=== PATIENT | female | born 1995 | race African-American/Black ===

== ENCOUNTER 2020-03-23 12:05 | Inpatient (IN) | payer MEDICAID, SELFPAY ==
--- NOTE | ~2020-03-23 | CT_ITS ---
EXAMINATION: CT abdomen pelvis w con DATE: 03/23/2020 14:11 INDICATION: Flank pain TECHNIQUE: Computed tomography (CT) of the abdomen and pelvis was performed with 100 mL Omnipaque-350 intravenous contrast. Automated exposure control and iterative reconstruction technique were employe d. The dose-length product was 1437.85 mGy-cm. COMPARISON: None FINDINGS: Lung bases are clear. Heart size is normal. No pericardial or pleural effusion. Focal hepatic steatos is at the ligamentum teres. Gallbladder, spleen, pancreas, bilateral adrenal glands and kidneys are n ormal. There is urothelial enhancement along the proximal right ureter which could be seen with ascen ding urinary tract infection. Bladder, anteverted uterus and bilateral adnexa are unremarkable. Bowel s including the appendix are normal. Postoperative change of prior ventral hernia mesh repair. No etelvina e intraperitoneal gas or fluid. No pathologically enlarged abdominal or pelvic lymphadenopathy. Bones are unremarkable. IMPRESSION: 1. Urothelial enhancement on the right ureter suggesting ascending urinary tract infection. Correlate with urinalysis. 2. Ventral hernia mesh repair. Reviewed, dictated and finalized at location A. IMPRESSION: 1. Urothelial enhancement on the right ureter suggesting ascending urinary trac t infection. Correlate with urinalysis. 2. Ventral hernia mesh repair.
[2020-03-23 11:59] VITALS: BP 147/92; PULSE 111; RESP 24; TEMP 37.6; O2SAT 100
[2020-03-23 12:31] LABS: Basophils Percent Auto 0.2 % (0.2-1.2); Eosinophils Percent Auto 0.1 % (0-4.4); Hematocrit 38.1 % (37.0-47.0); Hemoglobin 12.6 g/dL (12.0-15.0); Immature Granulocyte Absolute 0.05 K/mm3 (0.00-0.031); Immature Granulocyte Percent A 0.4 % (0-0.5); Lymphocytes Absolute Auto 0.73 K/mm3 (0.9-3.2); Lymphocytes Percent Auto 5.9 % (18.3-44.2); Mean Corpuscular HGB Conc 33.1 g/dl (32-36); Mean Corpuscular Hemoglobin 26.3 pg (26-34); Mean Corpuscular Volume 79.4 fl (80-100); Mean Platelet Volume 9.3 fl (7.4-10.4); Monocytes Absolute Auto 0.8 K/mm3 (0.1-0.6); Monocytes Percent Auto 6.6 % (2.6-8.5); Neutrophils Absolute Auto 10.7 K/mm3 (1.3-6.7); Neutrophils Percent Auto 86.8 % (45.5-73.1); Platelet Count Result 392 k/mm3 (150-375); Red Cell Distribution Width 16.3 % (11.5-14.5); White Blood Count 12.3 K/mm3 (4.5-10.0)
[2020-03-23 12:44] LABS: Blood Urea Nitrogen 5 mg/dL (7-17); Calcium 9.1 mg/dL (8.4-10.2); Carbon Dioxide 28 mmol/L (22-30); Chloride 105 mmol/L (98-107); Estimated CRCL calculation 141 ml/min; Estimated Glomerular Filt Rate > 60; Glucose 104 mg/dL (65-105); Potassium 3.8 mmol/L (3.4-5.0); Sodium 139 mmol/L (137-145)
[2020-03-23 13:55] LABS: Add Urine Microscopic? YES; Appearance Urine Cloudy (Clear); Bilirubin Urine Negative (Negative); Blood Urine 2+ (Negative); Color Urine Straw (Yellow); Glucose Urine UA Negative (Negative); Ketones Urine Trace mg/dL (Negative); Leukocyte Esterase Ur 3+ LEU/UL (Negative); Mucus Urine Rare /lpf; Nitrate Urine Negative (Negative); Protein Urine 1+ mg/dL (Negative); RBC Urine 21-50 /hpf (0-2); Specific Grav Ur 1.011 (1.001-1.035); Squamous Epithelial Cell Urine Few /hpf (Few); Urobilinogen Urine Negative mg/dL (<2.0); WBC Urine >75 /hpf
[2020-03-23] MEDS: ONDANSETRON INJ 4 MG/2 ML VIAL IV PUSH ×2 (13:59→16:27)
[2020-03-23 14:30] VITALS: BP 149/93; PULSE 97; RESP 18; TEMP 37.6; O2SAT 100
[2020-03-23 14:34] LABS: CRP 2.8 mg/dL (<1.0)
[2020-03-23 14:46] LABS: Erythrocyte Sedimentation Rate 26 mm/hr (0-20)
--- NOTE | 2020-03-23 14:59 | ED.GENADULT ---
HPI - General Adult General Chief complaint: Back Pain/Injury Stated complaint: abdominal and flank pain Time Seen by Provider: 03/23/20 13:16 Source: patient History of Present Illness HPI narrative: Patient is 24 years old -[place] female complaining of nausea, vomiting at least twice yesterday, today woke up with severe pain left flank area, sharp, worse with movement,, nothing make it better. Patient reports no fever, no chills, no abdominal pain. History of hypertension, last menstrual. On March 15. Patient denies any recent trauma. Patient reported eating [place] food yesterday subsequently developed vomiting and nausea Related Data Home Medications Medication Instructions Recorded Confirmed lisinopril-hydrochlorothiazide 1 tablet PO DAILY 03/23/20 Allergies Allergy/AdvReac Type Severity Reaction Status Date / Time No Known Allergies Allergy Verified 03/23/20 12:05 Review of Systems Review of Systems: Narrative: CONSTITUTIONAL: Denies fever, chills, or sweats. EYES: Denies visual changes, redness, or discharge. ENT: Denies rhinorrhea, congestion, sore throat, or otalgia. CARDIOVASCULAR: Denies chest pain, palpitations, or edema. RESPIRATORY: Denies cough or dyspnea. GASTROINTESTINAL: Denies abdominal pain, nausea, vomiting, or diarrhea. GENITOURINARY: Denies dysuria or hematuria. SKIN: Denies rash or itching. MUSCULOSKELETAL: Denies back pain, joint pain, or myalgia. NEUROLOGIC: Denies headache, numbness, or weakness. PSYCHIATRIC: Denies anxiety or depression. [facility] Social History Social History Gender identity (if verbalized by the patient): Female Sexual Orientation (if Verbalized by the Patient): Straight or Heterosexual Exam Narrative: Exam Narrative: General appearance: Well-developed, well-nourished, morbidly obese, in tears, looks in pain, no significant other at the bedside Skin: Normal color Head: Normocephalic, nontraumatic Eyes: Clear conjunctiva ENT: Oropharynx normal, ears normal, nose normal Neck: Supple, nontender Chest and respiratory: Airway patent, no respiratory distress, no accessory muscle use Heart: Regular rate/rhythm Abdomen: Soft, nontender, no organomegaly, quiet bowel sounds Vascular: Normal peripheral pulses, normal capillary refill. Musculoskeletal: Normal range of motion, severe tenderness all over the back mainly left flank area. No rash, no swelling no tumor. 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 Date: 03/23/20 Time: 15:07 Consultations Consultation #1: Dr. Anguiano Date: 03/23/20 Time: 15:08 Vital Signs Vital signs: Vital Signs Temperature 37.6 C H 03/23/20 11:59 Pulse Rate 111 H 03/23/20 11:59 Respiratory Rate 24 H 03/23/20 11:59 Blood Pressure 147/92 H 03/23/20 11:59 Pulse Oximetry 100 03/23/20 11:59 Temperature 37.6 C H 03/23/20 14:30 Pulse Rate 97 03/23/20 14:30 Respiratory Rate 18 03/23/20 14:30 Blood Pressure 149/93 H 03/23/20 14:30 Pulse Oximetry 100 03/23/20 14:30 Medical Decision Making [facility] Narrative Medical decision making narrative: Gastroenteritis, pyelonephritis, pulled muscle is my concern. Labs, CT abdomen pelvis with IV contrast, IV fluid, IV Dilaudid and Zofran ordered. Further plan to follow Differential Diagnosis Differential Diagnosis: Pyelonephritis, kidney stone, diverticulitis, renal infarction, pulled muscle, gastroenteritis Vital Signs Vital Signs: Vital Signs Temperature
[2020-03-23 15:29] VITALS: BP 150/88; PULSE 103; RESP 18; O2SAT 99
[2020-03-23 15:55] VITALS: BP 167/92; PULSE 80; RESP 18; O2SAT 98
[2020-03-23 16:05] VITALS: BMI 37.8
[2020-03-23] MEDS: LACTATED RINGERS 1,000 ML 125 ML IV CONT (16:26)
--- NOTE | 2020-03-23 16:38 | ADMGEN ---
This patient, Kam See, was admitted to 2 Medical Room 260-. Patient/family oriented to hospital policies and general routines including ID bracelet, bed and alarms, visiting hours, pain management, procedures, bathroom and other care routines, personal items, smoking policy, room service/diet, and visiting hours. Valuables list has been completed. Information on how to activate the Rapid Response Team has been discussed. Patient/Family are encouraged to report perceived risks to care and to ask questions if they do not understand what they are told or what they should do.
--- NOTE | 2020-03-23 16:49 | PM.IMHP ---
H&P: HPI History of Present Illness Chief complaint: acute pyelonephritis Narrative: Kam See is a 24 year old female who stated that she started having abdominal pain starting last night. She had nausea and vomiting that started last night. She had left flank pain that was sharp and worse with movement. She not take anything at home to help relieve this discomfort. She had no fever any chills but she states that she had she ate [place] food yesterday and thought that she got sick from the time knees food. She has not been around any sick contacts. CT of the abdomen shows urothelial enhancement on the right ureter suggesting ascending urinary tract infection. Correlate with urinalysis. Ventral hernia mesh repair. Patient was given a Dilaudid and Zofran and started on Rocephin the emergency room. Date of service 03/23/2020 Review of Systems Review of Systems: All systems reviewed & are unremarkable except as noted in HPI and below Constitutional: Constitutional: Reports as per HPI and Reports no additional constitutional complaints Eyes: Eyes: Reports as per HPI and Reports no additional eye complaints ENT: Reports system reviewed and no additional complaints, except as documented and Reports Normal hearing present Cardiovascular: Cardiovascular: Reports no additional cardiovascular complaints Respiratory: Respiratory: Reports no additional respiratory complaints and Reports no additional respiratory complaints Gastrointestinal: Gastrointestinal: Reports as per HPI and Reports no additional gastrointestinal complaints Musculoskeletal: Musculoskeletal: Reports no additional musculoskeletal complaints Integumentary/Breasts: Skin/Breast: Reports system reviewed and no additional complaints, except as docu and Reports as per HPI Neurologic: Reports system reviewed and no additional complaints, except as documented, Reports as per HPI and Reports Normal hearing present Psychiatric: Psychiatric: Reports no additional psychiatric complaints and Reports as per HPI Endocrine: Endocrine: Reports no additional endocrine complaints Hematologic/Lymphatic: Hematologic/Lymphatic: Reports no additional hematologic/lymphatic complaints Allergic/Immunologic: Allergic/Immunologic: Reports no additional allergic/immunologic complaints [facility] Past Medical History Medical History (Updated 03/23/20 @ 16:58 by Mary Calvo NP) HTN (hypertension) with goal to be determined Obesity BMI 40 Surgical History Surgical History (Updated 03/23/20 @ 16:58 by Mary Calvo NP) H/O ventral hernia repair With mesh History of section, classical 3 times Family History Family History (Updated 03/23/20 @ 16:59 by Mary Calvo NP) Father Heart disease Sibling Bone disorder Mother Bone disorder Social History Social History (Updated 03/23/20 @ 17:03 by Mary Calvo NP) Social History: Patient has 3 children she lives with her boyfriend and 3 children. She is currently unemployed she denies any alcohol marijuana or illicit drugs. She desires to be a full code. 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 Smoking status: Never smoker Alcohol intake: never Substance use: never Substance use type: does not use Gender identity (if verbalized by the patient): Female Sexual Orientation (if Verbalized by the Patient): Straight or Heterosexual Spiritual care concerns: No Meds Home Medications and Allergies Home Medications Medication Instructions Recorded Confirmed Type lisinopril-hydrochlorothiazide 1 tablet PO DAILY 03/23/20 03/23/20 History Allergies Allergy/AdvReac Type Severity Reaction Status Date / Time No Known Allergies Allergy Verified 03/23/20 12:05 Vital Signs Vital Signs - 24 hr 03/23/20 11:59 03/23/20 14:30 03/23/20 15:29 Temperature 37.6 C H 37.6 C H Pulse Rate 111 H 97 103 H Respiratory Rate 24 H 18 18 Blood Pressure 147/9
[2020-03-23 18:00] VITALS: BP 150/88; PULSE 104; RESP 16; TEMP 36.8; O2SAT 97
[2020-03-23] MEDS: FAMOTIDINE 20 MG/2 ML VIAL IV PUSH (20:53)
[2020-03-23 21:47] VITALS: BP 133/84; PULSE 102; RESP 16; TEMP 36.6; O2SAT 97
[2020-03-24] MEDS: LACTATED RINGERS 1,000 ML 125 ML IV CONT (01:12)
[2020-03-24 04:56] LABS: Basophils Absolute Auto 0.1 K/mm3 (0.0-0.1); Basophils Percent Auto 0.4 % (0.2-1.2); Eosinophils Absolute Auto 0.1 K/mm3 (0-0.3); Eosinophils Percent Auto 0.4 % (0-4.4); Hematocrit 34.4 % (37.0-47.0); Hemoglobin 11.1 g/dL (12.0-15.0); Immature Granulocyte Absolute 0.05 K/mm3 (0.00-0.031); Immature Granulocyte Percent A 0.4 % (0-0.5); Lymphocytes Absolute Auto 1.77 K/mm3 (0.9-3.2); Lymphocytes Percent Auto 13.2 % (18.3-44.2); Mean Corpuscular HGB Conc 32.3 g/dl (32-36); Mean Corpuscular Hemoglobin 25.9 pg (26-34); Mean Corpuscular Volume 80.4 fl (80-100); Mean Platelet Volume 9.9 fl (7.4-10.4); Monocytes Absolute Auto 1.2 K/mm3 (0.1-0.6); Neutrophils Absolute Auto 10.3 K/mm3 (1.3-6.7); Neutrophils Percent Auto 76.6 % (45.5-73.1); Platelet Count Result 337 k/mm3 (150-375); Red Blood Count 4.28 M/mm3 (4.2-5.4); Red Cell Distribution Width 16.5 % (11.5-14.5); White Blood Count 13.5 K/mm3 (4.5-10.0)
[2020-03-24 05:06] LABS: Lactic Acid 0.9 mmol/L (0.7-2.1)
[2020-03-24 05:16] LABS: Alanine Aminotransferase 10 U/L (4-35); Albumin Level 3.9 g/dL (3.5-5.1); Alkaline Phosphatase 77 U/L (38-126); Aspartate Amino Transferase 16 U/L (14-36); Bilirubin,Total 0.3 mg/dL (0.2-1.3); Blood Urea Nitrogen 5 mg/dL (7-17); Calcium 8.7 mg/dL (8.4-10.2); Carbon Dioxide 28 mmol/L (22-30); Chloride 103 mmol/L (98-107); Estimated CRCL calculation 136 ml/min; Estimated Glomerular Filt Rate > 60; Glucose 98 mg/dL (65-105); Potassium 3.7 mmol/L (3.4-5.0); Sodium 139 mmol/L (137-145)
[2020-03-24 05:25] LABS: CRP 16.7 mg/dL (<1.0)
[2020-03-24 05:52] LABS: Thyroid Stimulating Hormone Reflex 0.363 uIU/mL (0.465-4.68)
[2020-03-24 06:00] VITALS: BP 150/88; PULSE 80; RESP 18; TEMP 36.3; O2SAT 100
[2020-03-24 06:39] LABS: Free T4 Free Thyroxine Reflex 0.99 ng/dL (0.78-2.19)
[2020-03-24 07:57] LABS: Total Triiodothyronine (T3) 0.72 NG/ML (0.97-1.69)
[2020-03-24] MEDS: FAMOTIDINE 20 MG/2 ML VIAL IV PUSH ×2 (08:37→20:25)
[2020-03-24 10:00] VITALS: BP 109/60; PULSE 68; RESP 18; TEMP 36.6; O2SAT 100
--- NOTE | 2020-03-24 10:45 | PM.IMPN ---
Progress Note: A&P Assessment and Plan (1) Acute pyelonephritis: Code(s): N10 - Acute pyelonephritis Status: Acute Assessment and Plan: Patient presents with urinary hesitancy, nausea and vomiting with abnormal UA and evidence on CT abd/pel consistent with pyelonephritis. Continue IV Rocephin (day 2) while awaiting blood and urine cultures. Supportive care with IV hydration, antiemetics, and analgesics. (2) Sepsis: Qualifiers: Sepsis acute organ dysfunction status: unspecified Sepsis type: sepsis due to unspecified organism Qualified Code(s): A41.9 - Sepsis, unspecified organism Code(s): A41.9 - Sepsis, unspecified organism Status: Acute Assessment and Plan: Evident by leukocytosis and tachycardia. Suspected source is urinary; see above. Monitor vital signs and urine output. (3) HTN (hypertension) with goal to be determined: Code(s): I10 - Essential (primary) hypertension Status: Acute Assessment and Plan: Her home lisinopril-HCTZ is held to help prevent kidney injury and dehydration in the setting of vomiting and poor oral intake. Last BP 150/88, PRN hydralazine available. Will monitor BP and adjust treatment as needed. (4) Obesity: Qualifiers: Body mass index: BMI 37.0-37.9 Obesity classification: adult class 2 (BMI 35 - 39.9) Obesity type: unspecified obesity type Serious obesity comorbidity presence: unspecified whether serious comorbidity present Qualified Code(s): E66.9 - Obesity, unspecified; Z68.37 - Body mass index (BMI) 37.0-37.9, adult Code(s): E66.9 - Obesity, unspecified Status: Chronic Assessment and Plan: Lifestyle modifications recommended. Subjective Date/time seen: 03/24/20 1020 Interval history: Ms. See is a pleasant 24yo F admitted with acute pyelonephritis. She describes feeling a little better than yesterday with improved nausea, no vomiting so far this morning. She described urinary frequency and hesitancy in days prior that has improved this morning. She denies chest pain, shortness of breath, or cough. Review of Systems Review of Systems: Narrative: Twelve systems were reviewed with pertinent positives and negatives as per HPI. Exam Narrative: Exam Narrative: General: Female resting comfortably in bed in no acute distress. HEENT: Normocephalic, EOMI, oral mucosa moist. Cardiovascular: Rate and rhythm are regular. Respiratory: Lungs clear to auscultation in all olvera. Respirations even and nonlabored. Tolerating room air. Abdomen: Protuberant but soft, nondistended, bowel sounds present. Some mild left lower mid abdominal tenderness of palpation without guarding. Extremities: Peripheral pulses intact. No edema. Neuro: No focal neurological deficits. Speech is clear. Objective Data Vital Signs Vital Signs: Last Vital Signs Temp 97.4 F L 03/24/20 06:00 Pulse 80 03/24/20 06:00 Resp 18 03/24/20 06:00 BP 150/88 H 03/24/20 06:00 Pulse Ox 100 03/24/20 06:00 Intake/Output Intake/Output: Intake & Output 03/21/20 03/22/20 03/23/20 03/24/20 23:59 23:59 23:59 23:59 Intake Total 150 1450 Output Total 1350 Balance 150 100 Meds/Results Medications: Active Medications Generic Name Dose Route Start Last Admin Trade Name Freq PRN Reason Stop Dose Admin Famotidine 20 mg 03/23/20 21:00 03/24/20 08:37 Pepcid Iv IV PUSH 20 mg Q12HR SHELLEY Administration Hydralazine HCl 10 mg 03/23/20 16:39 Apresoline Hcl Inj IV PUSH Q8H PRN Blood Pressure - High Hydromorphone HCl 0.5 mg 03/23/20 16:46 03/23/20 17:06 Dilaudid Inj IV PUSH 0.5 mg Q3H PRN Administration Pain Rated 7-10 Acetaminophen 1,000 mg in 100 mls @ 400 mls/hr 03/23/20 16:52 03/24/20 07:21 Ofirmev 1,000 Mg Ivpb IVPB 03/24/20 16:53 I
[2020-03-24] MEDS: LACTATED RINGERS 1,000 ML 100 ML IV CONT ×2 (11:16→19:24)
[2020-03-24 14:00] VITALS: BP 123/76; PULSE 65; RESP 16; TEMP 36.4; O2SAT 100
[2020-03-24 21:48] VITALS: BP 149/91; PULSE 86; RESP 12; TEMP 37.2; O2SAT 100
[2020-03-25] MEDS: LACTATED RINGERS 1,000 ML 100 ML IV CONT (05:24)
[2020-03-25 06:00] VITALS: BP 130/96; PULSE 84; RESP 12; TEMP 36.6; O2SAT 100
[2020-03-25 06:34] LABS: Basophils Percent Auto 0.3 % (0.2-1.2); Eosinophils Absolute Auto 0.1 K/mm3 (0-0.3); Eosinophils Percent Auto 0.7 % (0-4.4); Hematocrit 30.1 % (37.0-47.0); Hemoglobin 10.1 g/dL (12.0-15.0); Immature Granulocyte Absolute 0.02 K/mm3 (0.00-0.031); Immature Granulocyte Percent A 0.3 % (0-0.5); Lymphocytes Absolute Auto 1.22 K/mm3 (0.9-3.2); Lymphocytes Percent Auto 16.4 % (18.3-44.2); Mean Corpuscular HGB Conc 33.6 g/dl (32-36); Mean Corpuscular Hemoglobin 26.3 pg (26-34); Mean Corpuscular Volume 78.4 fl (80-100); Mean Platelet Volume 9.4 fl (7.4-10.4); Monocytes Absolute Auto 0.9 K/mm3 (0.1-0.6); Monocytes Percent Auto 12.4 % (2.6-8.5); Neutrophils Absolute Auto 5.2 K/mm3 (1.3-6.7); Neutrophils Percent Auto 69.9 % (45.5-73.1); Platelet Count Result 327 k/mm3 (150-375); Red Blood Count 3.84 M/mm3 (4.2-5.4); Red Cell Distribution Width 15.9 % (11.5-14.5); White Blood Count 7.4 K/mm3 (4.5-10.0)
[2020-03-25 07:01] LABS: Alanine Aminotransferase 9 U/L (4-35); Albumin Level 3.5 g/dL (3.5-5.1); Alkaline Phosphatase 69 U/L (38-126); Aspartate Amino Transferase 15 U/L (14-36); Bilirubin,Total 0.1 mg/dL (0.2-1.3); Blood Urea Nitrogen 3 mg/dL (7-17); Calcium 8.4 mg/dL (8.4-10.2); Carbon Dioxide 27 mmol/L (22-30); Chloride 103 mmol/L (98-107); Estimated CRCL calculation 157 ml/min; Estimated Glomerular Filt Rate > 60; Glucose 95 mg/dL (65-105); Magnesium 1.8 mg/dL (1.6-2.3); Potassium 3.5 mmol/L (3.4-5.0); Sodium 139 mmol/L (137-145)
[2020-03-25] MEDS: FAMOTIDINE 20 MG/2 ML VIAL IV PUSH (08:34)
--- NOTE | 2020-03-25 11:18 | PM.DS ---
DS: Admitting Diagnosis Admitting Diagnosis Admitting Diagnosis: Acute pyelonephritis DS: Discharge Diagnosis Discharge Diagnosis (1) Acute pyelonephritis: Code(s): N10 - Acute pyelonephritis Status: Acute Assessment and Plan: Date of Service 03/25/20 Ms. See is a 24yo F with history of hypertension who presented to the ED for evaluation of right lower back pain, nausea, and vomiting with urinary hesitancy. CT abdomen/pelvis demonstrated evidence consistent with acute pyelonephritis. Urine culture grew E coli. She was empirically treated with 3 days of IV ceftriaxone and discharged with oral cefdinir to complete the course. Her symptoms were resolved. She was hemodynamically stable for discharge 03/25/20 with oral antibiotics and instructions to follow up with PCP in 1 week. Blood cultures pending day of discharge with no growth to date; will follow to final. Patient presents with urinary hesitancy, nausea and vomiting with abnormal UA, urine cx growing E coli and evidence on CT abd/pel consistent with pyelonephritis. Receiced 3 days of IV rocephin and discharged with oral ABX to complete the course. Received supportive care with IV hydration, antiemetics, and analgesics. (2) Sepsis: Qualifiers: Sepsis type: sepsis due to unspecified organism Sepsis acute organ dysfunction status: unspecified Qualified Code(s): A41.9 - Sepsis, unspecified organism Code(s): A41.9 - Sepsis, unspecified organism Status: Acute Assessment and Plan: Evident by leukocytosis and tachycardia; urinary source; see above. (3) HTN (hypertension) with goal to be determined: Code(s): I10 - Essential (primary) hypertension Status: Acute Assessment and Plan: Can continue her home lisinopril-HCTZ and follow up with PCP. (4) Obesity: Qualifiers: Obesity type: unspecified obesity type Obesity classification: adult class 2 (BMI 35 - 39.9) Serious obesity comorbidity presence: unspecified whether serious comorbidity present Body mass index: BMI 37.0-37.9 Qualified Code(s): E66.9 - Obesity, unspecified; Z68.37 - Body mass index (BMI) 37.0-37.9, adult Code(s): E66.9 - Obesity, unspecified Status: Chronic Assessment and Plan: Lifestyle modifications recommended. DS: Summary Time Spent with Patient Time attestation: Total time spent providing and/or coordinating discharge services: 35 minutes Exam Narrative: Exam Narrative: Last Vital Signs Temp 97.8 F 03/25/20 06:00 Pulse 84 03/25/20 06:00 Resp 12 03/25/20 06:00 BP 130/96 H 03/25/20 06:00 Pulse Ox 100 03/25/20 06:00 General: Female resting comfortably in bed in no acute distress. HEENT: Normocephalic, EOMI, oral mucosa moist. Cardiovascular: Rate and rhythm are regular. Respiratory: Lungs clear to auscultation in all olvera. Respirations even and nonlabored. Tolerating room air. Abdomen: Protuberant but soft, nondistended, bowel sounds present. Some mild left lower mid abdominal tenderness of palpation without guarding. Extremities: Peripheral pulses intact. No edema. Neuro: No focal neurological deficits. Speech is clear. DS: Data Data Completed and Pending Labs on day of discharge: Labs from last 24 hours 03/25/20 03/25/20 06:15 06:15 WBC 7.4 RBC 3.84 L Hgb 10.1 L Hct 30.1 L MCV 78.4 L MCH 26.3 MCHC 33.6 RDW 15.9 H Plt Count 327 MPV 9.4 Immature Gran % (Auto) 0.3 Neut % (Auto) 69.9 Lymph % (Auto) 16.4 L [place] % (Auto) 12.4 H Eos % (Auto) 0.7 Baso % (Auto) 0.3 Lymph # (Auto) 1.22 [place] # (Auto) 0.9 H Eos # (Auto) 0.1 Baso # (Auto)
== END 2020-03-25 12:36 | disposition home or self-care (01) | DRG 720 ==
LOC: ANHED 15:13 → ANH2MED 15:38
PROVIDERS: Emergency Medicine; Nurse Practitioner; Physician Assistant; Admitting Provider Internal Medicine; Emergency Provider Emergency Medicine; Visit Provider Internal Medicine
DX: A41.9 Sepsis, unspecified organism (principal); N10 Acute pyelonephritis; B96.20 Unspecified Escherichia coli [E. coli] as the cause of diseases classified elsewhere; I10 Essential (primary) hypertension; E66.9 Obesity, unspecified; Z68.37 Body mass index [BMI] 37.0-37.9, adult; Z79.899 Other long term (current) drug therapy
CPT/HCPCS: 36415; 74177; 80048; 80053; 81001; 81025; 83605; 83735; 84439; 84443; 84480; 85025; 85652; 86140; 87040; 87077; 87086; 87088; 87186; 96361; 96365; 96367; 96375; 96376; 99285; G0378; G0379; J0131; J0696; J1170; J2405; J7120; Q9967